=== PATIENT | female | born 1995 | race Caucasian/White ===

== ENCOUNTER 2020-11-14 11:58 | Inpatient (IN) | payer MEDICAID ==
[2020-11-14] MEDS ORDERED: Sodium Chloride 0.9% 10 ML SDV IV PRN (12:01)
[2020-11-14] MEDS ORDERED: Misoprostol 200 MCG Tab PO PRN (12:01)
[2020-11-14] MEDS ORDERED: Sodium Chloride 0.9% 2.5 ML Syringe FLUSH PRN (12:01)
[2020-11-14] MEDS ORDERED: Water For Irrigation,Sterile 1,000 ML Container IRR PRN (12:01)
[2020-11-14] MEDS ORDERED: Nalbuphine 10 MG/1 ML Vial IVPUSH PRN (12:01)
[2020-11-14] MEDS ORDERED: Carboprost Tromethamine 250 MCG/1 ML Amp IM PRN (12:01)
[2020-11-14] MEDS ORDERED: Butorphanol 1 MG/ML SDV IVPUSH PRN (12:01)
[2020-11-14] MEDS ORDERED: Methylergonovine 0.2 MG/1 ML Amp IM PRN (12:01)
[2020-11-14] MEDS ORDERED: Sodium Chloride 0.9% 10 ML Syringe FLUSH PRN (12:01)
[2020-11-14] MEDS ORDERED: Ondansetron 4 MG/2 ML SDV IVPUSH PRN (12:01)
[2020-11-14] MEDS ORDERED: Lidocaine 1% 50 ML MDV INJECT PRN (12:01)
[2020-11-14] MEDS ORDERED: Tranexamic Acid 1,000 MG in Sodium Chloride 0.9% 100 ML IV PRN (12:01)
[2020-11-14] MEDS ORDERED: Terbutaline 1 MG/ML SDV SUBCUT PRN (12:11)
[2020-11-14] MEDS ORDERED: Misoprostol 25 MCG (1/4 of 100 MCG) Tab VAG PRN (12:11)
[2020-11-14] MEDS ORDERED: Oxytocin/0.9 % Sodium Chloride 30 UNIT/500 ML BAG IV SCH ×2 (12:15)
[2020-11-14] MEDS ORDERED: Dextrose 5%-Lactated Ringers 1,000 ML IV SCH (12:30)
[2020-11-14] MEDS: Lactated Ringers 1,000 ML IV SCH ×3 (13:23→21:24)
--- NOTE | 2020-11-14 13:57 | PCM.LDHP ---
L&D History of Present Illness - General Date of Service: 11/14/20 Admit Problem/Dx: Patient Status Order with Admit Dx/Problem 11/14/20 11:50 Patient Status [ADT] Routine Admission Diagnosis/Problem Admission Diagnosis/Problem Source of Information: Patient History Limitations: Reports: No Limitations - History of Present Illness Introduction:: Patient presents for scheduled induction of labor due to Diabetes in . She is usually followed by Dr Licona, who had to leave town urgently for a . Patient took her full dose of insulin this morning. She notes good movement. Denies leakage of fluid or vaginal bleeding. No regular contractions. 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 Did not realize had become type 2 DM) Social & Family History - Family History Family Medical History: No Pertinent Family History H&P Review of Systems - Review of Systems: Review Of Systems: Comprehensive ROS is negative, except as noted in HPI. L&D Exam - Exam Exam: See Below - OB Specific Movement: Active Heart Tones: Present Heart Tones per Min: 140 Heart Rate (FHR) Variability: Moderate (6-25 bmp) Presentation: Vertex - Adler Score Adler Score Consistency: Medium Adler Score Effacement: 51-70% Adler Score Dilation: 3-4 cm Adler Score 's Station: -3 - Exam General: Alert, Oriented Neck: Supple Lungs: Clear to Auscultation, Normal Respiratory Effort Cardiovascular: Regular Rate, Regular Rhythm GI/Abdominal Exam: Soft, Non-Tender Back Exam: No: CVA Tenderness (L), CVA Tenderness (R) Extremities: Pedal Edema (trace). No: Barry's Sign Skin: Warm, Dry, Intact Neurological: Reflexes Equal Bilateral Psychiatric: Alert, Normal Affect, Normal Mood - Patient Data Lab Results Last 24 hrs: Laboratory Results - last 24 hr 11/14/20 11/14/20 Range/Units 12:30 12:30 WBC 8.66 (4.0-11.0) K/uL RBC 4.57 (4.30-5.90) M/uL Hgb 13.8 (12.0-16.0) g/dL Hct 40.0 (36.0-46.0) % MCV 87.5 (80.0-98.0) fL MCH 30.2 (27.0-32.0) pg MCHC 34.5 (31.0-37.0) g/dL RDW Std Deviation 41.0 (28.0-62.0) fl RDW Coeff of Tessa 13 (11.0-15.0) % Plt Count 237 (150-400) K/uL MPV 11.70 (7.40-12.00) fL Nucleated RBC % 0.0 /100WBC Nucleated RBCs # 0 K/uL Blood Type A POSITIVE Antibody Screen NEGATIVE Result Diagrams: 11/14/20 12:30 - Problem List (1) Diabetes with SNOMED Code(s): 343994105 ICD Code: O24.919 - UNSP DIABETES MELLITUS IN , UNSPECIFIED TRIMESTER Status: Acute Current Visit: Yes Problem List Initiated/Reviewed/Updated: Yes Orders Last 24hrs: Active Orders 24 hr Category Date Time Status Patient Status [ADT] Routine ADT 11/14/20 11:50 Active Bedrest Bathroom Privileges [RC] ASDIRECTED Care 11/14/20 12:11 Active Communication Order [RC] ASDIRECTED Care 11/14/20 12:11 Active Communication Order [RC] ASDIRECTED Care 11/14/20 12:11 Active Communication Order [RC] ASDIRECTED Care 11/14/20 12:11 Active Heart Tones [RC] CONTINUOUS Care 11/14/20 12:02 Active Non Stress Test [RC] PER UNIT ROUTINE Care 11/14/20 12:02 Active May Shower [RC] ASDIRECTED Care 11/14/20 12:02 Active Notify Provider [RC] PRN Care 11/14/20 12:02 Active Notify Provider [RC] PRN Care 11/14/20 12:11 Active Notify Provider [RC] PRN Care 11/14/20 12:11 Active Notify Provider [RC] STAT Care 11/14/20 12:11 Active Oxygen Therapy [RC] ASDIRECTED Care 11/14/20 12:11 Active Up ad Bonita [RC] ASDIRECTED Care 11/14/20 12:02 Active Vaginal Exam [RC] PRN Care 11/14/20 12:02 Active Vaginal Exam [RC] PRN Care 11/14/20 12:11 Active Vital Signs [RC] PER UNIT ROUTINE Care 11/14/20 12:02 Active Vital Signs [RC] PER UNIT ROUTINE Care 11/14/20 12:11 Active CORONAVIRUS COVID-19 ROULA [MOLEC] Routine Lab 11/14/20 12:27 Received RPR (SYPHILIS SERO) W/ RFLX [REF] Routine Lab 11/14/20 12:30 Received Butorphanol [Stadol] Med 11/14/20 12:01 Active 1 mg IVPUSH Q1H PRN Carboprost Tromethamine [Hemabate DS] Med 11/14/20 12:01 Active 250 mcg IM ASDIRECTED PRN Dextrose 5%-Lactated Ringers 1,000 ml Med 11/14/20 12:30 Active IV ASDIRECTED Insulin Regular, Human [NovoLIN R] 100 unit Med 11/14/20 12:30 Active Sodium Chloride 0.9% [Normal Saline] 99 ml IV TITRATE Lactated Ringers [Ringers, Lactated] 1,000 ml Med 11/14/20 12:15 Active IV ASDIRECTED Lidocaine 1% [Xylocaine 1%] Med 11/14/20 12:01 Active 50 ml INJECT ONETIME PRN Methylergonovine [Methergine] Med 11/14/20 12:01 Active 0.2 mg IM ASDIRECTED PRN Nalbuphine [Nubain] Med 11/14/20 12:01 Active 10 mg IVPUSH Q1H PRN Ondansetron [Zofran] Med 11/14/20 12:01 Active 4 mg IVPUSH Q6H PRN Oxytocin/0.9 % Sodium Chloride [Oxytocin 30 Unit/500 ML Med 11/14/20 12:15 Active -NS] 30 unit in 500 ml IV TITRATE Oxytocin/0.9 % Sodium Chloride [Oxytocin 30 Unit/500 ML Med 11/14/20 12:15 Active -NS] 30 unit in 500 ml IV TITRATE Sodium Chloride 0.9% [Normal Saline] Med 11/14/20 12:01 Active 10 ml IV ASDIRECTED PRN Sodium Chloride 0.9% [Saline Flush] Med 11/14/20 12:01 Active 10 ml FLUSH ASDIRECTED PRN Sodium Chloride 0.9% [Saline Flush] Med 11/14/20 12:01 Active 2.5 ml FLUSH ASDIRECTED PRN Terbutaline [Brethine] Med 11/14/20 12:11 Active 0.25 mg SUBCUT ASDIRECTED PRN Tranexamic Acid [Cyklokapron] 1,000 mg Med 11/14/20 12:01 Active Sodium Chloride 0.9% [Normal Saline] 100 ml IV ONETIME Water For Irrigation,Sterile [Sterile Water for Med 11/14/20 12:01 Active Irrigation] 1,000 ml IRR ASDIRECTED PRN miSOPROStoL [Cytotec] Med 11/14/20 12:01 Active 200 mcg PO ONETIME PRN miSOPROStoL [Cytotec] Med 11/14/20 12:11 Active 25 mcg VAG Q4H PRN Scalp Electrode [WOMSER] Per Unit Routine Oth 11/14/20 12:02 Ordered Medication Administration Instruction [OM.PC] Q3H Oth 11/14/20 12:15 Ordered Peripheral IV Insertion Adult [OM.PC] Routine Oth 11/14/20 12:02 Ordered Resuscitation Status Routine Resus Stat 11/14/20 12:01 Ordered Medication Orders Butorphanol Tartrate (Butorphanol 1 Mg/Ml Sdv) 1 mg IVPUSH Q1H PRN PRN Reason: Pain (severe 7-10) Carboprost Tromethamine (Carboprost Tromethamine 250 Mcg/1 Ml Amp) 250 mcg IM ASDIRECTED PRN PRN Reason: Post Hemorrhage Oxytocin/Sodium Chloride (Oxytocin 30 Unit/500 Ml-Ns) 30 unit in 500 mls @ 999 mls/hr IV TITRATE ALICE Tranexamic Acid 1,000 mg/ (Sodium Chloride) 110 mls @ 660 mls/hr IV ONETIME PRN PRN Reason: Bleeding Lactated Ringer's (Ringers, Lactated) 1,000 mls @ 150 mls/hr IV ASDIRECTED [facility] Last Admin: 11/14/20 13:23 Dose: 999 mls/hr Documented by: [id number] Oxytocin/Sodium Chloride (Oxytocin 30 Unit/500 Ml-Ns) 30 unit in 500 mls @ 2 mls/hr IV TITRATE [facility]; Protocol Last Admin: 11/14/20 13:24 Dose: 2 munits/min, 2 mls/hr Documented by: [id number] Insulin Human Regular 100 unit (/ Sodium Chloride) 100 mls @ 0.5 mls/hr IV TITRATE [facility]; Protocol Dextrose/Lactated Ringer's (Dextrose 5%-Lactated Ringers) 1,000 mls @ 100 mls/hr IV ASDIRECTED [facility] Lidocaine HCl (Lidocaine 1% 50 Ml Mdv) 50 ml INJECT ONETIME PRN PRN Reason: Laceration repair Methylergonovine Maleate (Methylergonovine 0.2 Mg/1 Ml Amp) 0.2 mg IM ASDIRECT ED PRN PRN Reason: Post Hemorrhage Misoprostol (Misoprostol 200 Mcg Tab) 200 mcg PO ONETIME PRN PRN Reason: Post Hemorrhage Misoprostol (Misoprostol 25 Mcg (1/4 Of 100 Mcg) Tab) 25 mcg VAG Q4H PRN PRN Reason: Cervical Ripening Nalbuphine HCl (Nalbuphine 10 Mg/1 Ml Vial) 10 mg IVPUSH Q1H PRN PRN Reason: Pain (severe 7-10) Ondansetron HCl (Ondansetron 4 Mg/2 Ml Sdv) 4 mg IVPUSH Q6H PRN PRN Reason: Nausea/Vomiting Sodium Chloride (Sodium Chloride 0.9% 10 Ml Syringe) 10 ml FLUSH ASDIRECTED PRN PRN Reason: Keep Vein Open Sodium Chloride (Sodium Chloride 0.9% 2.5 Ml Syringe) 2.5 ml FLUSH ASDIRECTED PRN PRN Reason: Keep Vein Open Sodium Chloride (Sodium Chloride 0.9% 10 Ml Sdv) 10 ml IV ASDIRECTED PRN PRN Reason: IV Use Sterile Water (Water For Irrigation,Sterile 1,000 Ml Container) 1,000 ml IRR ASDIRECTED PRN PRN Reason: delivery Terbutaline Sulfate (Terbutaline 1 Mg/Ml Sdv) 0.25 mg SUBCUT ASDIRECTED PRN PRN Reason: Tacysystole Assessment/Plan Comment:: 38/3 week IUP Pre-existing diabetes in GBBS negative Patient is admitted. Routine labs obtained. Plan sliding scale insulin drip as needed. Pitocin induction planned. Risks of induction discussed with patient as well as her plan. Questions answered. Proceed with induction.
[2020-11-14] MEDS ORDERED: oxyCODONE 5 MG Tab PO PRN (22:11)
[2020-11-14] MEDS ORDERED: Acetaminophen 500 MG Tab PO PRN ×2 (22:11)
[2020-11-14] MEDS ORDERED: Ibuprofen 400 MG Tab PO PRN (22:11)
[2020-11-14] MEDS ORDERED: Witch Hazel Medicated Pads 40/Jar TOP PRN (22:11)
[2020-11-14] MEDS ORDERED: Docusate Sodium 100 MG Cap PO PRN (22:11)
[2020-11-14] MEDS ORDERED: Bisacodyl 10 MG Supp RECTAL PRN (22:11)
[2020-11-14] MEDS ORDERED: Lanolin 100% Cream 7 GM Tube TOP PRN (22:11)
[2020-11-14] MEDS ORDERED: Benzocaine/Menthol 20%-0.5% Spray 78 GM Cannister TOP PRN (22:11)
--- NOTE | 2020-11-14 22:19 | PCM.OPNOTE ---
- General Post-Op/Procedure Note Date of Surgery/Procedure: 11/14/20 Operative Procedure(s): /1st MLL repaired Findings: Viable male APGARs 8, 9 weight pending. Spontaneous delivery intact placenta with 3V cord Pre Op Diagnosis: 38/3 week IUP. Diabetes with Post-Op Diagnosis: Same Anesthesia Technique: Local Primary Surgeon: Renuka De La Fuente EBL in mLs: 300 Complications: none known Condition: Stable Free Text/Narrative:: Intake & Output 11/14/20 11/14/20 11/14/20 06:59 14:59 22:59 Intake Total 2049 Balance 2049 Dictation [id number]
--- NOTE | 2020-11-14 23:49 | OR ---
SURGEON: Renuka De La Fuente M.D. DATE OF PROCEDURE: 11/14/2020 PREOPERATIVE DIAGNOSES: 1. 38 and 3-week intrauterine . 2. Diabetes in . POSTOPERATIVE DIAGNOSES: 1. 38 and 3-week intrauterine . 2. Diabetes in . PROCEDURES: Spontaneous vaginal delivery, first-degree midline laceration repaired. PRIMARY SURGEON: Renuka De La Fuente M.D. ANESTHESIA: Local. ESTIMATED BLOOD LOSS: 300 mL. COMPLICATIONS: None known. FINDINGS: Viable male, scores 8 at one minute and 9 at five minutes. Weight pending. Spontaneous delivery, intact placenta, 3-vessel cord. DISPOSITION: to nursery. Mom in LDRP. PROCEDURE DETAILS: Jyothi is a 25-year-old, G3, P2 at 38 and 3 weeks' gestational age, who presented this morning for scheduled induction of labor due to diabetes in . Upon initial examination, she was found to be 2 cm dilated, 70% effaced, and -3 station. Therefore, she was admitted. Routine labs were drawn. Glucose was checked and found to be in the 80s. She did receive her dose of insulin this morning. heart tones, category 1. The patient was initiated on Pitocin and responded nicely to this, became increasingly uncomfortable, and began making cervical change. Once she was approximately 7 cm, she is group B strep negative, and it was requested that amniotomy be performed. This was performed and clear fluid was returned. The patient transitioned nicely, continued with laboring efforts, and progressed quickly and remained at 7 cm for the next approximately hour and a half and thereafter progressed rather quickly to complete, feeling sudden urge to push with delivery of the infant's head. I was directly available in the hallway, presented to the room with the patient standing and bent at the midline. She was able to push and delivered the anterior shoulder, posterior shoulder, and remainder of the body without difficulty. The 's oropharynx and nares were bulb suctioned. I was able to reposition the mother into the bed in dorsal supine position, and then was able to hand the infant to the mother. After a delay, cord was clamped x2 and cut. Cord arterial, cord venous, and cord blood sampling was obtained. Light pressure was applied while the placenta was delivered spontaneously intact. Vigorous fundal uterine massage was then applied while 30 units Pitocin was delivered in 500 mL of fluid. The cervix, vaginal side wall, and perineum were inspected, and she was found to have a first-degree midline laceration. Upon asking the patient if she would like this repaired, she would. Therefore, the region was prepped with approximately 8 mL 1% lidocaine and repaired using 3-0 Vicryl in the usual fashion. Sponge, instrument, and needle count was correct. The patient tolerated the procedure well overall. Hemostasis remained evident. Uterus remained firm. The patient remained in LDRP. We will continue to monitor her glucoses closely. to nursery. MAURY / CHRISTINA /[id number]
[2020-11-14] MEDS: Ibuprofen 800 MG Tab PO PRN (23:58)
[2020-11-15] MEDS ORDERED: Glucagon,Human Recombinant 1 MG Vial IM PRN ×2 (10:00→22:19)
[2020-11-15] MEDS ORDERED: 50% Dextrose in Water 50 ML Syringe IVPUSH PRN ×2 (10:00→22:19)
[2020-11-15] MEDS: Ibuprofen 800 MG Tab PO PRN (10:00)
[2020-11-15] MEDS: Insulin Detemir 100 Units/ML 3 ML Pen SUBCUT ONE ×2 (11:21→22:51)
--- NOTE | 2020-11-15 12:03 | PCM.PNPP ---
- General Info Date of Service: 11/15/20 Functional Status: Reports: Pain Controlled, Tolerating Diet, Ambulating, Urinating - Review of Systems General: Reports: Fatigue. Denies: Fever, Weakness Pulmonary: Denies: Shortness of Breath Cardiovascular: Denies: Chest Pain, Palpitations, Lightheadedness Gastrointestinal: Denies: Abdominal Pain, Nausea, Vomiting Genitourinary: Denies: Flank Pain Musculoskeletal: Reports: No Symptoms Skin: Reports: No Symptoms Neurological: Reports: No Symptoms Psychiatric: Reports: No Symptoms - General Info Date of Service: 11/15/20 - Patient Data Vital Signs - Most Recent: Last Vital Signs Temp 36.4 C 11/15/20 04:55 Pulse 69 11/15/20 04:55 Resp 16 11/15/20 04:55 BP 104/66 11/15/20 04:55 Pulse Ox 97 11/15/20 04:55 Weight - Most Recent: 82.1 kg I&O - Last 24 Hours: Intake & Output 11/14/20 11/15/20 11/15/20 22:59 06:59 14:59 Intake Total 2049 500 Balance 2049 500 Lab Results - Last 24 Hours: Laboratory Results - last 24 hr 11/14/20 11/14/20 11/14/20 Range/Units 12:27 12:30 12:30 WBC 8.66 (4.0-11.0) K/uL RBC 4.57 (4.30-5.90) M/uL Hgb 13.8 (12.0-16.0) g/dL Hct 40.0 (36.0-46.0) % MCV 87.5 (80.0-98.0) fL MCH 30.2 (27.0-32.0) pg MCHC 34.5 (31.0-37.0) g/dL RDW Std Deviation 41.0 (28.0-62.0) fl RDW Coeff of Tessa 13 (11.0-15.0) % Plt Count 237 (150-400) K/uL MPV 11.70 (7.40-12.00) fL Nucleated RBC % 0.0 /100WBC Nucleated RBCs # 0 K/uL Cord ABG pH (7.18-7.38) Cord ABG Base Excess (-10--2) Cord VBG pH (7.25-7.45) Cord VBG Base Excess (-10--2) POC Glucose (70-99) mg/dL SARS-CoV-2 RNA (ROULA) NEGATIVE (NEGATIVE) Blood Type A POSITIVE Antibody Screen NEGATIVE 11/14/20 11/14/20 11/14/20 Range/Units 17:42 19:31 21:40 WBC (4.0-11.0) K/uL RBC (4.30-5.90) M/uL Hgb (12.0-16.0) g/dL Hct (36.0-46.0) % MCV (80.0-98.0) fL MCH (27.0-32.0) pg MCHC (31.0-37.0) g/dL RDW Std Deviation (28.0-62.0) fl RDW Coeff of Tessa (11.0-15.0) % Plt Count (150-400) K/uL MPV (7.40-12.00) fL Nucleated RBC % /100WBC Nucleated RBCs # K/uL Cord ABG pH 7.261 (7.18-7.38) Cord ABG Base Excess -5 (-10--2) Cord VBG pH 7.355 (7.25-7.45) Cord VBG Base Excess -6 (-10--2) POC Glucose 89 82 (70-99) mg/dL SARS-CoV-2 RNA (ROULA) (NEGATIVE) Blood Type Antibody Screen 11/14/20 11/15/20 11/15/20 Range/Units 23:39 04:55 06:23 WBC (4.0-11.0) K/uL RBC (4.30-5.90) M/uL Hgb 13.1 (12.0-16.0) g/dL Hct 38.2 (36.0-46.0) % MCV (80.0-98.0) fL MCH (27.0-32.0) pg MCHC (31.0-37.0) g/dL RDW Std Deviation (28.0-62.0) fl RDW Coeff of Tessa (11.0-15.0) % Plt Count (150-400) K/uL MPV (7.40-12.00) fL Nucleated RBC % /100WBC Nucleated RBCs # K/uL Cord ABG pH (7.18-7.38) Cord ABG Base Excess (-10--2) Cord VBG pH (7.25-7.45) Cord VBG Base Excess (-10--2) POC Glucose 218 H 176 H (70-99) mg/dL SARS-CoV-2 RNA (RUOLA) (NEGATIVE) Blood Type Antibody Screen 11/15/20 Range/Units 09:45 WBC (4.0-11.0) K/uL RBC (4.30-5.90) M/uL Hgb (12.0-16.0) g/dL Hct (36.0-46.0) % MCV (80.0-98.0) fL MCH (27.0-32.0) pg MCHC (31.0-37.0) g/dL RDW Std Deviation (28.0-62.0) fl RDW Coeff of Tessa (11.0-15.0) % Plt Count (150-400) K/uL MPV (7.40-12.00) fL Nucleated RBC % /100WBC Nucleated RBCs # K/uL Cord ABG pH (7.18-7.38) Cord ABG Base Excess (-10--2) Cord VBG pH (7.25-7.45) Cord VBG Base Excess (-10--2) POC Glucose 97 (70-99) mg/dL SARS-CoV-2 RNA (ROULA) (NEGATIVE) Blood Type Antibody Screen Med Orders - Current: Current Medications Acetaminophen (Acetaminophen 500 Mg Tab) 500 mg PO Q4H PRN PRN Reason: Pain (mild 1-3) Acetaminophen (Acetaminophen 500 Mg Tab) 1,000 mg PO Q4H PRN PRN Reason: Pain (mild 1-3) Benzocaine/Menthol (Benzocaine/Menthol 20%-0.5% Hav[place] 78 Gm Cannister) 78 gm TOP ASDIRECTED PRN PRN Reason: Perineal Comfort Measure Last Admin: 11/14/20 23:44 Dose: 78 gm Documented by: Bisacodyl (Bisacodyl 10 Mg Supp) 10 mg RECTAL ONETIME PRN PRN Reason: Constipation Dextrose/Water (50% Dextrose In Water 50 Ml Syringe) 50 ml IVPUSH ASDIRECTED PRN PRN Reason: Hypoglycemia Docusate Sodium (Docusate Sodium 100 Mg Cap) 100 mg PO Q12H PRN PRN Reason: Constipation Last Admin: 11/14/20 23:43 Dose: 100 mg Documented by: Emollient Ointment (Lanolin 100% Cream 7 Gm Tube) 0 gm TOP ASDIRECTED PRN PRN Reason: Sore Nipples Glucagon (Glucagon,Human Recombinant 1 Mg Vial) 1 mg IM ASDIRECTED PRN PRN Reason: Hypoglycemia Oxytocin/Sodium Chloride (Oxytocin 30 Unit/500 Ml-Ns) 30 unit in 500 mls @ 999 mls/hr IV TITRATE ALICE Tranexamic Acid 1,000 mg/ (Sodium Chloride) 110 mls @ 660 mls/hr IV ONETIME PRN PRN Reason: Bleeding Lactated Ringer's (Ringers, Lactated) 1,000 mls @ 150 mls/hr IV ASDIRECTED ALICE Last Admin: 11/14/20 21:24 Dose: 150 mls/hr Documented by: Oxytocin/Sodium Chloride (Oxytocin 30 Unit/500 Ml-Ns) 30 unit in 500 mls @ 2 mls/hr IV TITRATE ALICE; Protocol Last Titration: 11/14/20 21:41 Dose: 500 munits/min, 500 mls/hr Documented by: Ibuprofen (Ibuprofen 400 Mg Tab) 400 mg PO Q4H PRN PRN Reason: Pain (mild 1-3) Ibuprofen (Ibuprofen 800 Mg Tab) 800 mg PO Q6H PRN PRN Reason: Pain (mild 1-3) Last Admin: 11/15/20 10:00 Dose: 800 mg Documented by: Lidocaine HCl (Lidocaine 1% 50 Ml Mdv) 50 ml INJECT ONETIME PRN PRN Reason: Laceration repair Last Admin: 11/14/20 21:54 Dose: 50 ml Documented by: Methylergonovine Maleate (Methylergonovine 0.2 Mg/1 Ml Amp) 0.2 mg IM ASDIRECTED PRN PRN Reason: Post Hemorrhage Nalbuphine HCl (Nalbuphine 10 Mg/1 Ml Vial) 10 mg IVPUSH Q1H PRN PRN Reason: Pain (severe 7-10) Ondansetron HCl (Ondansetron 4 Mg/2 Ml Sdv) 4 mg IVPUSH Q6H PRN PRN Reason: Nausea/Vomiting Oxycodone HCl (Oxycodone 5 Mg Tab) 5 mg PO Q2H PRN PRN Reason: Pain (severe 7-10) Sodium Chloride (Sodium Chloride 0.9% 10 Ml Syringe) 10 ml FLUSH ASDIRECTED PRN PRN Reason: Keep Vein Open Sodium Chloride (Sodium Chloride 0.9% 2.5 Ml Syringe) 2.5 ml FLUSH ASDIRECTED PRN PRN Reason: Keep Vein Open Sodium Chloride (Sodium Chloride 0.9% 10 Ml Sdv) 10 ml IV ASDIRECTED PRN PRN Reason: IV Use Sterile Water (Water For Irrigation,Sterile 1,000 Ml Container) 1,000 ml IRR ASDIRECTED PRN PRN Reason: delivery Last Admin: 11/14/20 21:40 Dose: 1,000 ml Documented by: Terbutaline Sulfate (Terbutaline 1 Mg/Ml Sdv) 0.25 mg SUBCUT ASDIRECTED PRN PRN Reason: Tacysystole Witch Magaly (Witch Magaly Medicated Pads 40/Jar) 1 pad TOP ASDIRECTED PRN PRN Reason: comfort care Last Admin: 11/14/20 23:43 Dose: 1 tub Documented by: Discontinued Medications Butorphanol Tartrate (Butorphanol 1 Mg/Ml Sdv) 1 mg IVPUSH Q1H PRN PRN Reason: Pain (severe 7-10) Carboprost Tromethamine (Carboprost Tromethamine 250 Mcg/1 Ml Amp) 250 mcg IM ASDIRECTED PRN PRN Reason: Post Hemorrhage Insulin Human Regular 100 unit (/ Sodium Chloride) 100 mls @ 1 mls/hr IV TITRATE [facility]ICE; Protocol Dextrose/Lactated Ringer's (Dextrose 5%-Lactated Ringers) 1,000 mls @ 100 mls/hr IV ASDIRECTED [facility] Insulin Detemir (Insulin Detemir 100 Units/Ml 3 Ml Pen) 6 unit SUBCUT ONETIME ONE Stop: 11/15/20 10:01 Last Admin: 11/15/20 11:21 Dose: 6 units Documented by: Misoprostol (Misoprostol 200 Mcg Tab) 200 mcg PO ONETIME PRN PRN Reason: Post Hemorrhage Misoprostol (Misoprostol 25 Mcg (1/4 Of 100 Mcg) Tab) 25 mcg VAG Q4H PRN PRN Reason: Cervical Ripening - Infant Interaction Support Person: , Mother - Recovery Exam Fundal Tone: Firm Fundal Level: 1 Fingerbreadths Below Umbilicus Fundal Placement: Midline Lochia Amount: Scant, Small Lochia Color: Rubra/Red Episiotomy/Laceration: Approximated Bladder Status: Voiding - Exam General: Alert, Oriented Lungs: Normal Respiratory Effort Cardiovascular: Regular Rate, Regular Rhythm GI/Abdominal Exam: Normal Bowel Sounds, Soft Extremities: Pedal Edema (trace). No: Barry's Sign Skin: Warm, Dry, Intact Neurological: No New Focal Deficit Psy/Mental Status: Alert, Normal Affect, Normal Mood - Problem List & Annotations (1) Diabetes with SNOMED Code(s): 484567440 Code(s): O24.919 - UNSP DIABETES MELLITUS IN , UNSPECIFIED TRIMESTER Status: Acute Current Visit: Yes (2) Vaginal delivery SNOMED Code(s): 630795544 Code(s): O80 - ENCOUNTER FOR FULL-TERM UNCOMPLICATED DELIVERY Status: Acute Current Visit: Yes - Problem List Review Problem List Initiated/Reviewed/Updated: Yes - My Orders Last 24 Hours: My Active Orders 11/14/20 11:50 Patient Status [ADT] Routine 11/14/20 12:01 Lidocaine 1% [Xylocaine 1%] 50 ml INJECT ONETIME PRN Methylergonovine [Methergine] 0.2 mg IM ASDIRECTED PRN Nalbuphine [Nubain] 10 mg IVPUSH Q1H PRN Ondansetron [Zofran] 4 mg IVPUSH Q6H PRN Sodium Chloride 0.9% [Normal Saline] 10 ml IV ASDIRECTED PRN Sodium Chloride 0.9% [Saline Flush] 10 ml FLUSH ASDIRECTED PRN Sodium Chloride 0.9% [Saline Flush] 2.5 ml FLUSH ASDIRECTED PRN Tranexamic Acid [Cyklokapron] 1,000 mg Sodium Chloride 0.9% [Normal Saline] 100 ml IV ONETIME Water For Irrigation,Sterile [Sterile Water for Irrigation] 1,000 ml IRR ASDIRECTED PRN Resuscitation Status Routine 11/14/20 12:02 May Shower [RC] ASDIRECTED Peripheral IV Insertion Adult [OM.PC] Routine 11/14/20 12:11 Oxygen Therapy [RC] ASDIRECTED Vital Signs [RC] PER UNIT ROUTINE Terbutaline [Brethine] 0.25 mg SUBCUT ASDIRECTED PRN 06/18/21 12:15 Lactated Ringers [Ringers, Lactated] 1,000 ml IV ASDIRECTED Oxytocin/0.9 % Sodium Chloride [Oxytocin 30 Unit/500 ML-NS] 30 unit in 500 ml IV TITRATE Oxytocin/0.9 % Sodium Chloride [Oxytocin 30 Unit/500 ML-NS] 30 unit in 500 ml IV TITRATE Medication Administration Instruction [OM.PC] Q3H 11/14/20 12:30 RPR (SYPHILIS SERO) W/ RFLX [REF] Routine 11/14/20 Dinner Regular Diet [DIET] 11/14/20 22:11 Patient Status [ADT] Routine May Shower [RC] ASDIRECTED Notify Provider Vital Signs [RC] ASDIRECTED Up ad Bonita [RC] ASDIRECTED Acetaminophen [Tylenol Extra Strength] 1,000 mg PO Q4H PRN Acetaminophen [Tylenol Extra Strength] 500 mg PO Q4H PRN Benzocaine/Menthol [Dermoplast Pain Relief 20%-0.5% [place]] 78 gm TOP ASDIRECTED PRN Docusate Sodium [Colace] 100 mg PO Q12H PRN Ibuprofen [Motrin] 400 mg PO Q4H PRN Ibuprofen [Motrin] 800 mg PO Q6H PRN Lanolin [Lansinoh HPA] See Dose Instructions TOP ASDIRECTED PRN bisacodyL [Dulcolax] 10 mg RECTAL ONETIME PRN oxyCODONE 5 mg PO Q2H PRN witch Magaly [Tucks] 1 pad TOP ASDIRECTED PRN Assess Lochia [WOMSER] Per Unit Routine Assess Uterine Involution [WOMSER] Per Unit Routine Ice Therapy [OM.PC] Per Unit Routine Perineal Care [OM.PC] Per Unit Routine Peripheral IV Discontinue [OM.PC] Routine 11/14/20 22:12 Blood Glucose Check, Bedside [RC] QIDACANDBED 11/15/20 10:00 Dextrose 50% in Water 50 ml IVPUSH ASDIRECTED PRN Glucagon,Human Recombinant [GlucaGen] 1 mg IM ASDIRECTED PRN - Assessment Assessment:: PPD 1 status post Preexisting diabetes - Plan Plan:: Patient took full dose of insulin last night despte being specifically advised not to do this as her demands will most likely signficantly diminish with de christeny. She did have a 66 glucose this morning, then corrected to 80 and into 100s. Reduced dose of levemir to 6 U this am. Discussed with patient would rather haver her run a little high than have lows at this juncture while adjusting. Otherwise, labs are reassuring. Continue PP cares.
[2020-11-16] MEDS: Ibuprofen 800 MG Tab PO PRN (08:09)
[2020-11-16] MEDS ORDERED: Glucagon,Human Recombinant 1 MG Vial IM PRN (10:38)
[2020-11-16] MEDS ORDERED: 50% Dextrose in Water 50 ML Syringe IVPUSH PRN (10:38)
--- NOTE | 2020-11-16 10:46 | PCM.PNPP ---
- General Info Date of Service: 11/16/20 Functional Status: Reports: Pain Controlled, Tolerating Diet, Ambulating, Urinating - Review of Systems General: Reports: Fatigue. Denies: Fever, Weakness Pulmonary: Denies: Shortness of Breath Cardiovascular: Denies: Chest Pain, Palpitations, Lightheadedness Gastrointestinal: Denies: Abdominal Pain, Nausea, Vomiting Genitourinary: Denies: Flank Pain Musculoskeletal: Reports: No Symptoms Skin: Reports: No Symptoms Neurological: Reports: No Symptoms Psychiatric: Reports: No Symptoms - General Info Date of Service: 11/16/20 - Patient Data Vital Signs - Most Recent: Last Vital Signs Temp 36.3 C 11/16/20 05:00 Pulse 68 11/16/20 05:00 Resp 17 11/16/20 05:00 BP 122/66 11/16/20 05:00 Pulse Ox 97 11/16/20 05:00 Weight - Most Recent: 82.1 kg Lab Results - Last 24 Hours: Laboratory Results - last 24 hr 11/15/20 11/15/20 11/16/20 Range/Units 15:12 22:14 10:03 POC Glucose 93 196 H 114 H (70-99) mg/dL Med Orders - Current: Current Medications Acetaminophen (Acetaminophen 500 Mg Tab) 500 mg PO Q4H PRN PRN Reason: Pain (mild 1-3) Acetaminophen (Acetaminophen 500 Mg Tab) 1,000 mg PO Q4H PRN PRN Reason: Pain (mild 1-3) Benzocaine/Menthol (Benzocaine/Menthol 20%-0.5% Ledbetter 78 Gm Cannister) 78 gm TOP ASDIRECTED PRN PRN Reason: Perineal Comfort Measure Last Admin: 11/14/20 23:44 Dose: 78 gm Documented by: Bisacodyl (Bisacodyl 10 Mg Supp) 10 mg RECTAL ONETIME PRN PRN Reason: Constipation Dextrose/Water (50% Dextrose In Water 50 Ml Syringe) 50 ml IVPUSH ASDIRECTED PRN PRN Reason: Hypoglycemia Docusate Sodium (Docusate Sodium 100 Mg Cap) 100 mg PO Q12H PRN PRN Reason: Constipation Last Admin: 11/14/20 23:43 Dose: 100 mg Documented by: Emollient Ointment (Lanolin 100% Cream 7 Gm Tube) 0 gm TOP ASDIRECTED PRN PRN Reason: Sore Nipples Glucagon (Glucagon,Human Recombinant 1 Mg Vial) 1 mg IM ASDIRECTED PRN PRN Reason: Hypoglycemia Oxytocin/Sodium Chloride (Oxytocin 30 Unit/500 Ml-Ns) 30 unit in 500 mls @ 999 mls/hr IV TITRATE ALICE Tranexamic Acid 1,000 mg/ (Sodium Chloride) 110 mls @ 660 mls/hr IV ONETIME PRN PRN Reason: Bleeding Lactated Ringer's (Ringers, Lactated) 1,000 mls @ 150 mls/hr IV ASDIRECTED ALICE Last Admin: 11/14/20 21:24 Dose: 150 mls/hr Documented by: Oxytocin/Sodium Chloride (Oxytocin 30 Unit/500 Ml-Ns) 30 unit in 500 mls @ 2 mls/hr IV TITRATE [facility]; Protocol Last Titration: 11/14/20 21:41 Dose: 500 munits/min, 500 mls/hr Documented by: Ibuprofen (Ibuprofen 400 Mg Tab) 400 mg PO Q4H PRN PRN Reason: Pain (mild 1-3) Ibuprofen (Ibuprofen 800 Mg Tab) 800 mg PO Q6H PRN PRN Reason: Pain (mild 1-3) Last Admin: 11/16/20 08:09 Dose: 800 mg Documented by: Lidocaine HCl (Lidocaine 1% 50 Ml Mdv) 50 ml INJECT ONETIME PRN PRN Reason: Laceration repair Last Admin: 11/14/20 21:54 Dose: 50 ml Documented by: Methylergonovine Maleate (Methylergonovine 0.2 Mg/1 Ml Amp) 0.2 mg IM ASDIRECTED PRN PRN Reason: Post Hemorrhage Nalbuphine HCl (Nalbuphine 10 Mg/1 Ml Vial) 10 mg IVPUSH Q1H PRN PRN Reason: Pain (severe 7-10) Ondansetron HCl (Ondansetron 4 Mg/2 Ml Sdv) 4 mg IVPUSH Q6H PRN PRN Reason: Nausea/Vomiting Oxycodone HCl (Oxycodone 5 Mg Tab) 5 mg PO Q2H PRN PRN Reason: Pain (severe 7-10) Sodium Chloride (Sodium Chloride 0.9% 10 Ml Syringe) 10 ml FLUSH ASDIRECTED PRN PRN Reason: Keep Vein Open Sodium Chloride (Sodium Chloride 0.9% 2.5 Ml Syringe) 2.5 ml FLUSH ASDIRECTED PRN PRN Reason: Keep Vein Open Sodium Chloride (Sodium Chloride 0.9% 10 Ml Sdv) 10 ml IV ASDIRECTED PRN PRN Reason: IV Use Sterile Water (Water For Irrigation,Sterile 1,000 Ml Container) 1,000 ml IRR ASDIRECTED PRN PRN Reason: delivery Last Admin: 11/14/20 21:40 Dose: 1,000 ml Documented by: Terbutaline Sulfate (Terbutaline 1 Mg/Ml Sdv) 0.25 mg SUBCUT ASDIRECTED PRN PRN Reason: Tacysystole Witch Magaly (Witch Magaly Medicated Pads 40/Jar) 1 pad TOP ASDIRECTED PRN PRN Reason: comfort care Last Admin: 11/14/20 23:43 Dose: 1 tub Documented by: Discontinued Medications Butorphanol Tartrate (Butorphanol 1 Mg/Ml Sdv) 1 mg IVPUSH Q1H PRN PRN Reason: Pain (severe 7-10) Carboprost Tromethamine (Carboprost Tromethamine 250 Mcg/1 Ml Amp) 250 mcg IM ASDIRECTED PRN PRN Reason: Post Hemorrhage Insulin Human Regular 100 unit (/ Sodium Chloride) 100 mls @ 1 mls/hr IV TITRATE [facility]ICE; Protocol Dextrose/Lactated Ringer's (Dextrose 5%-Lactated Ringers) 1,000 mls @ 100 mls/hr IV ASDIRECTED ALICE Insulin Detemir (Insulin Detemir 100 Units/Ml 3 Ml Pen) 6 unit SUBCUT ONETIME ONE Stop: 11/15/20 10:01 Last Admin: 11/15/20 11:21 Dose: 6 units Documented by: Insulin Detemir (Insulin Detemir 100 Units/Ml 10 Ml Vial) 8 unit SUBCUT ONETIME ONE Stop: 11/15/20 22:20 Last Admin: 11/15/20 22:51 Dose: 8 units Documented by: Misoprostol (Misoprostol 200 Mcg Tab) 200 mcg PO ONETIME PRN PRN Reason: Post Hemorrhage Misoprostol (Misoprostol 25 Mcg (1/4 Of 100 Mcg) Tab) 25 mcg VAG Q4H PRN PRN Reason: Cervical Ripening - Interaction Support Person: , Mother - Recovery Exam Fundal Tone: Firm Fundal Level: 1 Fingerbreadths Below Umbilicus Fundal Placement: Midline Lochia Amount: Scant Lochia Color: Rubra/Red Perineum Description: Intact, Minimal Bruising/Swelling, Other (see below) Other Perinuem Description: 1st degree laceration Episiotomy/Laceration: Approximated Bladder Status: Voiding - Exam General: Alert, Oriented Lungs: Normal Respiratory Effort Cardiovascular: Regular Rate, Regular Rhythm GI/Abdominal Exam: Non-Tender Extremities: Pedal Edema (trace). No: Barry's Sign Skin: Warm, Dry, Intact Neurological: No New Focal Deficit Psy/Mental Status: Alert, Normal Affect, Normal Mood - Problem List & Annotations (1) Diabetes with SNOMED Code(s): 062636114 Code(s): O24.919 - UNSP DIABETES MELLITUS IN , UNSPECIFIED TRIMESTER Status: Acute Current Visit: Yes (2) Vaginal delivery SNOMED Code(s): 358227446 Code(s): O80 - ENCOUNTER FOR FULL-TERM UNCOMPLICATED DELIVERY Status: Acute Current Visit: Yes - Problem List Review Problem List Initiated/Reviewed/Updated: Yes - My Orders Last 24 Hours: My Active Orders 11/15/20 10:00 Dextrose 50% in Water 50 ml IVPUSH ASDIRECTED PRN Glucagon,Human Recombinant [GlucaGen] 1 mg IM ASDIRECTED PRN 11/16/20 10:38 Dextrose 50% in Water 50 ml IVPUSH ASDIRECTED PRN Glucagon,Human Recombinant [GlucaGen] 1 mg IM ASDIRECTED PRN 11/16/20 11:00 Insulin Detemir [Levemir] 6 unit SUBCUT BIDAC - Assessment Assessment:: PPD 2 status post Preexisting diabetes - Plan Plan:: Dosing levemir at 6 U bid, glucoses have been in the 90s, no lows. One in the 170s. Baby is on iv fluids/glucose. Otherwise, patient's VS are stable. Continue cares. Anticipate discharge tomorrow. Will continue to cover until Dr Licona returns.
[2020-11-16] MEDS: Insulin Detemir 100 Units/ML 3 ML Pen SUBCUT SCH (21:55)
[2020-11-17] MEDS: Insulin Detemir 100 Units/ML 3 ML Pen SUBCUT SCH (11:00)
--- NOTE | 2020-11-17 18:30 | PCM.DCSUM1 ---
Discharge Summary - Hospital Course Free Text/Narrative:: Discharge home. Follow up with Dr. Licona in one week to assess glucose. Follow up again at 6 six for routine exam. Diagnosis: Stroke: No Modified Jakin Scale: No Symptoms at All Modified Sofía Scale Score: 0 - Discharge Data Discharge Date: 11/17/20 Discharge Disposition: Home, Self-Care 01 Condition: Stable - Referral to Home Health Primary Care Physician: PCP None - Patient Summary/Data Operative Procedure(s) Performed: /1st MLL repaired - Patient Instructions Diet: Drink 8-10+ Glasses/Day, Diabetic Diet Activity: No Strenuous Activities, Rest and Relax Today Showering/Bathing: May Shower Notify Provider of: Fever, Increased Pain, Nausea and/or Vomiting Other/Special Instructions: Pelvic rest for 6 weeks. Continue PNV daily - Discharge Plan *PRESCRIPTION DRUG MONITORING PROGRAM REVIEWED*: Not Applicable *COPY OF PRESCRIPTION DRUG MONITORING REPORT IN PATIENT CHARLENE: Not Applicable Prescriptions/Med Rec: Ibuprofen [Motrin] 800 mg PO Q6H PRN #90 tablet PRN Reason: Pain (Mild 1-3) Home Medications: Home Meds Ascorbate Calcium [Vitamin C] 500 mg PO TID 09/12/20 [History] Vits #93/Iron Fum/FA [ Formula Tablet] 1 each PO DAILY 09/12/20 [History] metFORMIN [Glucophage] 1,000 mg PO BIDMEALS 09/12/20 [History] Ibuprofen [Motrin] 800 mg PO Q6H PRN #90 tablet 11/17/20 [Rx] Oxygen Therapy Mode: Room Air Referrals: Joslyn Blake, KATHERINEM, [employer] [Mid-] - 12/26/20 2:00 pm - Discharge Summary/Plan Comment DC Time >30 min.: Yes - General Info Date of Service: 11/17/20 Admission Dx/Problem (Free Text: Patient Status Order with Admit Dx/Problem 11/14/20 11:50 Patient Status [ADT] Routine Admission Diagnosis/Problem Admission Diagnosis/Problem Functional Status: Reports: Pain Controlled, Tolerating Diet, Ambulating, Urinating - Review of Systems General: Reports: No Symptoms HEENT: Reports: No Symptoms Pulmonary: Reports: No Symptoms Cardiovascular: Reports: No Symptoms Gastrointestinal: Reports: No Symptoms Genitourinary: Reports: No Symptoms Musculoskeletal: Reports: No Symptoms Skin: Reports: No Symptoms Neurological: Reports: No Symptoms Psychiatric: Reports: No Symptoms - Patient Data Vitals - Most Recent: Last Vital Signs Temp 97.8 F 11/17/20 16:00 Pulse 78 11/17/20 16:00 Resp 16 11/17/20 16:00 BP 124/75 11/17/20 07:45 Pulse Ox 98 11/17/20 16:00 Weight - Most Recent: 181 lb Lab Results - Last 24 hrs: Laboratory Results - last 24 hr 11/14/20 11/16/20 11/16/20 Range/Units 12:30 21:04 23:25 POC Glucose 143 H 158 H (70-99) mg/dL RPR Non-Reac (Non-Reac) 11/17/20 11/17/20 11/17/20 Range/Units 07:08 11:00 16:20 POC Glucose 97 109 H 96 (70-99) mg/dL RPR (Non-Reac) Med Orders - Current: Current Medications Acetaminophen (Acetaminophen 500 Mg Tab) 500 mg PO Q4H PRN PRN Reason: Pain (mild 1-3) Acetaminophen (Acetaminophen 500 Mg Tab) 1,000 mg PO Q4H PRN PRN Reason: Pain (mild 1-3) Benzocaine/Menthol (Benzocaine/Menthol 20%-0.5% Victor 78 Gm Cannister) 78 gm TOP ASDIRECTED PRN PRN Reason: Perineal Comfort Measure Last Admin: 11/14/20 23:44 Dose: 78 gm Documented by: Bisacodyl (Bisacodyl 10 Mg Supp) 10 mg RECTAL ONETIME PRN PRN Reason: Constipation Dextrose/Water (50% Dextrose In Water 50 Ml Syringe) 50 ml IVPUSH ASDIRECTED PRN PRN Reason: Hypoglycemia Docusate Sodium (Docusate Sodium 100 Mg Cap) 100 mg PO Q12H PRN PRN Reason: Constipation Last Admin: 11/14/20 23:43 Dose: 100 mg Documented by: Emollient Ointment (Lanolin 100% Cream 7 Gm Tube) 0 gm TOP ASDIRECTED PRN PRN Reason: Sore Nipples Glucagon (Glucagon,Human Recombinant 1 Mg Vial) 1 mg IM ASDIRECTED PRN PRN Reason: Hypoglycemia Oxytocin/Sodium Chloride (Oxytocin 30 Unit/500 Ml-Ns) 30 unit in 500 mls @ 999 mls/hr IV TITRATE ALICE Tranexamic Acid 1,000 mg/ (Sodium Chloride) 110 mls @ 660 mls/hr IV ONETIME PRN PRN Reason: Bleeding Lactated Ringer's (Ringers, Lactated) 1,000 mls @ 150 mls/hr IV ASDIRECTED ALICE Last Admin: 11/14/20 21:24 Dose: 150 mls/hr Documented by: Oxytocin/Sodium Chloride (Oxytocin 30 Unit/500 Ml-Ns) 30 unit in 500 mls @ 2 mls/hr IV TITRATE [facility]; Protocol Last Titration: 11/14/20 21:41 Dose: 500 munits/min, 500 mls/hr Documented by: Ibuprofen (Ibuprofen 400 Mg Tab) 400 mg PO Q4H PRN PRN Reason: Pain (mild 1-3) Ibuprofen (Ibuprofen 800 Mg Tab) 800 mg PO Q6H PRN PRN Reason: Pain (mild 1-3) Last Admin: 11/16/20 08:09 Dose: 800 mg Documented by: Insulin Detemir (Insulin Detemir 100 Units/Ml 3 Ml Pen) 6 unit SUBCUT Q12H [facility] Last Admin: 11/17/20 11:00 Dose: 6 units Documented by: Lidocaine HCl (Lidocaine 1% 50 Ml Mdv) 50 ml INJECT ONETIME PRN PRN Reason: Laceration repair Last Admin: 11/14/20 21:54 Dose: 50 ml Documented by: Methylergonovine Maleate (Methylergonovine 0.2 Mg/1 Ml Amp) 0.2 mg IM ASDIRECTED PRN PRN Reason: Post Hemorrhage Nalbuphine HCl (Nalbuphine 10 Mg/1 Ml Vial) 10 mg IVPUSH Q1H PRN PRN Reason: Pain (severe 7-10) Ondansetron HCl (Ondansetron 4 Mg/2 Ml Sdv) 4 mg IVPUSH Q6H PRN PRN Reason: Nausea/Vomiting Oxycodone HCl (Oxycodone 5 Mg Tab) 5 mg PO Q2H PRN PRN Reason: Pain (severe 7-10) Sodium Chloride (Sodium Chloride 0.9% 10 Ml Syringe) 10 ml FLUSH ASDIRECTED PRN PRN Reason: Keep Vein Open Sodium Chloride (Sodium Chloride 0.9% 2.5 Ml Syringe) 2.5 ml FLUSH ASDIRECTED PRN PRN Reason: Keep Vein Open Sodium Chloride (Sodium Chloride 0.9% 10 Ml Sdv) 10 ml IV ASDIRECTED PRN PRN Reason: IV Use Sterile Water (Water For Irrigation,Sterile 1,000 Ml Container) 1,000 ml IRR ASDIRECTED PRN PRN Reason: delivery Last Admin: 11/14/20 21:40 Dose: 1,000 ml Documented by: Terbutaline Sulfate (Terbutaline 1 Mg/Ml Sdv) 0.25 mg SUBCUT ASDIRECTED PRN PRN Reason: Tacysystole Witch Magaly (Witch Magaly Medicated Pads 40/Jar) 1 pad TOP ASDIRECTED PRN PRN Reason: comfort care Last Admin: 11/14/20 23:43 Dose: 1 tub Documented by: Discontinued Medications Butorphanol Tartrate (Butorphanol 1 Mg/Ml Sdv) 1 mg IVPUSH Q1H PRN PRN Reason: Pain (severe 7-10) Carboprost Tromethamine (Carboprost Tromethamine 250 Mcg/1 Ml Amp) 250 mcg IM ASDIRECTED PRN PRN Reason: Post Hemorrhage Insulin Human Regular 100 unit (/ Sodium Chloride) 100 mls @ 1 mls/hr IV TITRATE [facility]; Protocol Dextrose/Lactated Ringer's (Dextrose 5%-Lactated Ringers) 1,000 mls @ 100 m ls/hr IV ASDIRECTED [facility] Insulin Detemir (Insulin Detemir 100 Units/Ml 3 Ml Pen) 6 unit SUBCUT ONETIME ONE Stop: 11/15/20 10:01 Last Admin: 11/15/20 11:21 Dose: 6 units Documented by: Insulin Detemir (Insulin Detemir 100 Units/Ml 10 Ml Vial) 8 unit SUBCUT ONETIME ONE Stop: 11/15/20 22:20 Last Admin: 11/15/20 22:51 Dose: 8 units Documented by: Insulin Detemir (Insulin Detemir 100 Units/Ml 10 Ml Vial) 6 unit SUBCUT BIDAC [facility] Last Admin: 11/16/20 11:12 Dose: 6 units Documented by: Misoprostol (Misoprostol 200 Mcg Tab) 200 mcg PO ONETIME PRN PRN Reason: Post Hemorrhage Misoprostol (Misoprostol 25 Mcg (1/4 Of 100 Mcg) Tab) 25 mcg VAG Q4H PRN PRN Reason: Cervical Ripening - Exam General: Reports: Alert, Oriented, Cooperative, No Acute Distress Lungs: Reports: Normal Respiratory Effort Cardiovascular: Reports: Regular Rate, Regular Rhythm GI/Abdominal Exam: Soft, Non-Tender (Female) Exam: Deferred Rectal (Female) Exam: Deferred Back Exam: Reports: Normal Inspection, Full Range of Motion Extremities: Normal Inspection, Normal Range of Motion, Non-Tender, Normal Capillary Refill Skin: Reports: Warm, Dry, Intact Neurological: Reports: No New Focal Deficit, Normal Speech, Normal Tone Psy/Mental Status: Reports: Alert, Normal Affect, Normal Mood
== END 2020-11-17 18:45 | disposition home or self-care (01) | DRG 807 ==
LOC: MW.OBCHECK 11:58 → MW.OB 11:59 → MW.OBCHECK 12:17 → MW.OB 12:17 → OBSVTOIN 21:40 → MW.OB 11-15 01:05
PROVIDERS: ADMIT Obstetrics & Gynecology; ATTEND Obstetrics & Gynecology
PROC: 10E0XZZ Delivery of Products of Conception, External Approach (ICD-10-PCS; principal; 2020-11-14)
PROC: 3E033VJ Introduction of Other Hormone into Peripheral Vein, Percutaneous Approach (ICD-10-PCS; 2020-11-14)
PROC: 0HQ9XZZ Repair Perineum Skin, External Approach (ICD-10-PCS; 2020-11-14)
DX: O24.12 Pre-existing type 2 diabetes mellitus, in childbirth (principal); Z37.0 Single live birth; E11.9 Type 2 diabetes mellitus without complications; Z3A.38 38 weeks gestation of pregnancy; O70.0 First degree perineal laceration during delivery; Z79.84 Long term (current) use of oral hypoglycemic drugs; Z20.822 Contact with and (suspected) exposure to COVID-19
CPT/HCPCS: 36415; 59025; 59409; 82803; 82947; 85014; 85018; 85027; 86592; 86850; 86900; 86901; A9270-GY; J1815-GY; J2001; J2590; J7120; U0002